=== PATIENT | female | born 1960 | race Caucasian/White ===

== ENCOUNTER 2016-06-05 17:27 | Emergency (ER) | payer OTHER ==
[~2016-06-05] VITALS: Ht 154.9 cm; Wt 90.9 kg
[~2016-06-05 17:27] MED LIST: B-12500 MCG PO; CALCIUM600 MG PO; CELEXA 20MG20 MG/TAB PO; COLACE 100100 MG/CAP PO; LEVOXYL0.125 MG PO; MULTI VITAMINS1 TAB PO; TOPROL XL 50MG50 MG PO
[2016-06-05 17:31] VITALS: TEMP 98.4
[2016-06-05 19:24] VITALS: BP 155/86; PULSE 86
== END 2016-06-05 19:26 | disposition home or self-care (01) ==
LOC: COL.ER 17:27
DX: R13.10 Dysphagia, unspecified (principal); R49.0 Dysphonia; Z98.1 Arthrodesis status; I10 Essential (primary) hypertension
CPT/HCPCS: J2060; Q9967

== ENCOUNTER 2016-10-17 07:19 | Day surgery (SDC) | payer OTHER ==
[~2016-10-17] VITALS: Ht 154.9 cm; Wt 103.1 kg
[2016-10-17] MEDS ORDERED: ROXICODONE 55 MG/TAB PO (08:11)
[2016-10-17] MEDS ORDERED: PAMELOR 25MG25 MG PO (08:12)
[2016-10-17] MEDS ORDERED: CYMBALTA 60MG60 MG PO (08:12)
[2016-10-17] MEDS ORDERED: ZANAFLEX 4MG TAB4 MG PO (08:13)
[2016-10-17 08:17] VITALS: BP 178/91; PULSE 85; TEMP 98.1
[2016-10-17 09:33] VITALS: BP 148/68; PULSE 81
[2016-10-17 09:48] VITALS: BP 148/65; PULSE 92
[2016-10-17 10:03] VITALS: BP 142/52; PULSE 89
== END 2016-10-17 10:15 | disposition home or self-care (01) ==
LOC: SDCO 07:19
DX: J38.01 Paralysis of vocal cords and larynx, unilateral (principal); J37.0 Chronic laryngitis; I34.1 Nonrheumatic mitral (valve) prolapse; I10 Essential (primary) hypertension; K21.9 Gastro-esophageal reflux disease without esophagitis; E03.9 Hypothyroidism, unspecified; F32.9 Major depressive disorder, single episode, unspecified; F41.9 Anxiety disorder, unspecified; G47.33 Obstructive sleep apnea (adult) (pediatric); M19.90 Unspecified osteoarthritis, unspecified site; Z96.652 Presence of left artificial knee joint; Z90.49 Acquired absence of other specified parts of digestive tract; Z85.828 Personal history of other malignant neoplasm of skin; Z80.9 Family history of malignant neoplasm, unspecified
CPT/HCPCS: J2704; J7120

== ENCOUNTER 2017-02-20 13:11 | Outpatient (RCR) | payer OTHER ==
[~2017-02-20 13:11] MED LIST changes: +CYMBALTA 60MG60 MG PO; +PAMELOR 25MG25 MG PO; +ROXICODONE 55 MG/TAB PO; +ZANAFLEX 4MG TAB4 MG PO
== END 2017-05-21 | disposition home or self-care (01) ==
LOC: WSPT → WSOT 13:15 → WSPT 13:15
DX: M54.2 Cervicalgia (principal); M54.5 Low back pain; Z98.1 Arthrodesis status; Z96.652 Presence of left artificial knee joint

== ENCOUNTER → 2017-04-24 | Outpatient (CLI) | payer OTHER | LOC: COL.RAD 11:38 | DX: M79.604 Pain in right leg (principal) ==

== ENCOUNTER → 2017-06-25 | Outpatient (CLI) | payer OTHER | LOC: SUN.DIA 13:10 | DX: E11.9 Type 2 diabetes mellitus without complications (principal); Z68.41 Body mass index [BMI] 40.0-44.9, adult; Z71.3 Dietary counseling and surveillance | CPT/HCPCS: G0108 ==

== ENCOUNTER → 2017-07-01 | Outpatient (CLI) | payer OTHER | LOC: MHCPAIN 14:08 | DX: G89.29 Other chronic pain (principal); M47.817 Spondylosis without myelopathy or radiculopathy, lumbosacral region; M54.16 Radiculopathy, lumbar region; M53.3 Sacrococcygeal disorders, not elsewhere classified; M96.1 Postlaminectomy syndrome, not elsewhere classified; M48.061 Spinal stenosis, lumbar region without neurogenic claudication | CPT/HCPCS: G0463 ==

== ENCOUNTER → 2017-09-06 | Outpatient (CLI) | payer OTHER | LOC: MHCPAIN 09:15 | DX: G89.29 Other chronic pain (principal); M47.817 Spondylosis without myelopathy or radiculopathy, lumbosacral region; M54.16 Radiculopathy, lumbar region; M53.3 Sacrococcygeal disorders, not elsewhere classified; M96.1 Postlaminectomy syndrome, not elsewhere classified; M48.061 Spinal stenosis, lumbar region without neurogenic claudication | CPT/HCPCS: G0463 ==

== ENCOUNTER → 2017-09-19 | Outpatient (CLI) | payer OTHER | LOC: MHCPAIN 08:34 | DX: M47.27 Other spondylosis with radiculopathy, lumbosacral region (principal) | CPT/HCPCS: J1100; Q9967 ==

== ENCOUNTER → 2017-10-01 | Outpatient (CLI) | payer OTHER | LOC: MHCPAIN 13:55 | DX: G89.29 Other chronic pain (principal); M47.817 Spondylosis without myelopathy or radiculopathy, lumbosacral region; M54.16 Radiculopathy, lumbar region; M53.3 Sacrococcygeal disorders, not elsewhere classified; M96.1 Postlaminectomy syndrome, not elsewhere classified | CPT/HCPCS: G0463 ==

== ENCOUNTER → 2017-12-19 | Outpatient (CLI) | payer OTHER | LOC: MHCPAIN 08:00 | DX: M54.16 Radiculopathy, lumbar region (principal) | CPT/HCPCS: J1100; Q9967 ==

== ENCOUNTER → 2018-01-02 | Outpatient (CLI) | payer OTHER | LOC: COL.RAD 08:26 | DX: K22.8 Other specified diseases of esophagus (principal); R13.10 Dysphagia, unspecified; R10.84 Generalized abdominal pain; Z98.890 Other specified postprocedural states | CPT/HCPCS: Q9967 ==

== ENCOUNTER → 2018-02-04 | Outpatient (CLI) | payer OTHER | LOC: MHCPAIN 11:02 | DX: G89.29 Other chronic pain (principal); M47.817 Spondylosis without myelopathy or radiculopathy, lumbosacral region; M54.16 Radiculopathy, lumbar region; M53.3 Sacrococcygeal disorders, not elsewhere classified; M96.1 Postlaminectomy syndrome, not elsewhere classified | CPT/HCPCS: G0463 ==

== ENCOUNTER → 2018-02-27 | Outpatient (CLI) | payer OTHER | LOC: MC.RAD 01-14 10:00 | DX: Z12.31 Encounter for screening mammogram for malignant neoplasm of breast (principal) ==

== ENCOUNTER → 2018-04-01 | Outpatient (CLI) | payer OTHER | LOC: MHCPAIN 10:14 | DX: G89.29 Other chronic pain (principal); M47.817 Spondylosis without myelopathy or radiculopathy, lumbosacral region; M54.16 Radiculopathy, lumbar region; M53.3 Sacrococcygeal disorders, not elsewhere classified; M96.1 Postlaminectomy syndrome, not elsewhere classified | CPT/HCPCS: G0463 ==

== ENCOUNTER → 2018-04-10 | Outpatient (CLI) | payer OTHER | LOC: MHCPAIN 14:47 | DX: M47.817 Spondylosis without myelopathy or radiculopathy, lumbosacral region (principal); M54.16 Radiculopathy, lumbar region | CPT/HCPCS: J1100; Q9967 ==

== ENCOUNTER → 2018-04-24 | Outpatient (CLI) | payer OTHER | LOC: COL.RAD 10:16 | DX: M51.16 Intervertebral disc disorders with radiculopathy, lumbar region (principal); M96.1 Postlaminectomy syndrome, not elsewhere classified; M48.061 Spinal stenosis, lumbar region without neurogenic claudication; M43.16 Spondylolisthesis, lumbar region; Z98.1 Arthrodesis status | CPT/HCPCS: A9585 ==

== ENCOUNTER → 2018-10-15 | Outpatient (CLI) | payer OTHER | LOC: MHCPAIN | DX: G89.29 Other chronic pain (principal); M47.817 Spondylosis without myelopathy or radiculopathy, lumbosacral region; M54.16 Radiculopathy, lumbar region; M53.3 Sacrococcygeal disorders, not elsewhere classified; M96.1 Postlaminectomy syndrome, not elsewhere classified | CPT/HCPCS: G0463 ==

== ENCOUNTER → 2018-12-29 | Outpatient (CLI) | payer OTHER | LOC: MHCPAIN 09:01 | DX: G89.29 Other chronic pain (principal); M47.817 Spondylosis without myelopathy or radiculopathy, lumbosacral region; M54.16 Radiculopathy, lumbar region; M53.3 Sacrococcygeal disorders, not elsewhere classified | CPT/HCPCS: G0463 ==

== ENCOUNTER → 2019-01-06 | Outpatient (CLI) | payer OTHER | LOC: COL.RAD 08:47 | DX: Z01.812 Encounter for preprocedural laboratory examination (principal); E11.9 Type 2 diabetes mellitus without complications; M47.816 Spondylosis without myelopathy or radiculopathy, lumbar region; M96.1 Postlaminectomy syndrome, not elsewhere classified; Z98.890 Other specified postprocedural states | CPT/HCPCS: A9585 ==

== ENCOUNTER → 2019-01-08 | Outpatient (CLI) | payer OTHER | LOC: MHCPAIN 11:36 | DX: M47.817 Spondylosis without myelopathy or radiculopathy, lumbosacral region (principal); M54.16 Radiculopathy, lumbar region | CPT/HCPCS: J1100; Q9967 ==

== ENCOUNTER 2019-02-15 15:54 | Emergency (ER) | payer OTHER ==
[~2019-02-15] VITALS: Ht 154.9 cm; Wt 95.5 kg
[~2019-02-15 15:54] MED LIST changes: +CALCIUM CARBON650 M2 PO; -CALCIUM600 MG PO
[2019-02-15 15:59] VITALS: BP 141/73; TEMP 97
[2019-02-15] MEDS ORDERED: PAMELOR75 MG PO (16:09)
[2019-02-15] MEDS ORDERED: PERCOCET 325 MG1 TA2 PO (16:10)
[2019-02-15] MEDS ORDERED: GLUCOPHAGE1000 MG PO (16:18)
[2019-02-15] MEDS ORDERED: COZAAR 25MG25 MG/TAB PO (16:19)
[2019-02-15] MEDS ORDERED: LYRICA 25MG CAP25 MG PO (16:19)
[2019-02-15 16:25] VITALS: PULSE 81
== END 2019-02-15 16:25 | disposition home or self-care (01) ==
LOC: COL.ER 15:54
DX: S80.01XA Contusion of right knee, initial encounter (principal); S80.02XA Contusion of left knee, initial encounter; W19.XXXA Unspecified fall, initial encounter

== ENCOUNTER 2020-08-25 09:24 | Inpatient (IN) | payer MEDICARE, OTHER ==
[~2020-08-25] VITALS: Ht 155 cm; Wt 97.9 kg
[~2020-08-25 09:24] MED LIST changes: +COZAAR 25MG25 MG/TAB PO; +GLUCOPHAGE1000 MG PO; +LYRICA 25MG CAP25 MG PO; +PAMELOR75 MG PO; +PERCOCET 325 MG1 TA2 PO
[2020-10-24] VITALS (10 sets, daily range): BP systolic 131–163; BP diastolic 57–83; PULSE 65–85; TEMP 97.2–98.2
[2020-10-24] MEDS ORDERED: COZAAR 50MG50 MG/TAB PO (08:17)
[2020-10-24] MEDS ORDERED: PAMELOR75 MG PO (08:17)
[2020-10-24] MEDS ORDERED: LYRICA 50MG CAP50 MG PO (08:17)
[2020-10-24] MEDS ORDERED: ZANAFLEX CAPSULE4 MG PO (08:18)
[2020-10-24] MEDS ORDERED: SINGULAIR 110 MG/TAB PO (08:18)
[2020-10-24] MEDS ORDERED: GLUCOPHAGE1000 MG PO (08:18)
[2020-10-24] MEDS ORDERED: HCTZ12.5TAB PO (08:18)
[2020-10-24] MEDS ORDERED: SYNTHROID0.125 MG/T PO (08:19)
[2020-10-24] MEDS ORDERED: CELEXA 20MG20 MG/TAB PO (08:20)
[2020-10-24] MEDS ORDERED: ZYRTEC 10MG10 MG PO (08:21)
[2020-10-24] MEDS ORDERED: ATARAX 25MG25 MG/TAB PO (08:22)
[2020-10-24] MEDS ORDERED: ONE-A-DAY ESSE1 EACH PO (08:22)
[2020-10-24] MEDS ORDERED: MELATONIN5 M1 PO (08:22)
[2020-10-24] MEDS ORDERED: BIOTIN5000 MCG PO (08:23)
[2020-10-24] MEDS ORDERED: MASON NATURAL2000 IU PO (08:23)
[2020-10-24] MEDS ORDERED: B COMPLEX & B121 TAB PO (08:23)
[2020-10-24] MEDS ORDERED: FOLIC ACID0.4 MG PO (08:23)
[2020-10-24] MEDS ORDERED: IRON TABLETS325 MG PO (08:24)
[2020-10-24] MEDS ORDERED: VITAMINC1000TA PO (08:24)
--- NOTE | 2020-10-24 19:40 | NUR ---
Patient doing better this evening. Pain was an issue this afternoon. I did call and speak with Hima Mazariegos. Patient was requesting a morphine drip, rating her pain a 10/10. No orders for morphine drip, but we did DC scheduled tyelnol & and start [place] to alternate with Roxicodone. Patient had recived a dose of IV morphine for breakthrough pain as well as ultram. Patient had been quite sleepy and facial expression & movements at the time did not appear to be 10/10 pain. Patient ate about half her dinner without nausea. Right knee occlusive dressing remains CDI. Ice pack intact. Elevated on pillow. Cms intact. Ivf to Lfa with fluids and antiboitc per orders. Scds ble. [place] to LLE. Patient VSS on O2. Patient also has been using CPAP while sleeping. Patient spouse was also at bedside today. Bedside report to Eula NEWMAN
--- NOTE | 2020-10-24 23:43 | NUR ---
Patient assessed around 2099. Alert and oriented x 4, and able to make needs known. Reported level 8 pain, and was given PRN Roxicodone around 2099. Pain was at a 6 around 2334, and given PRN [place]. Peripheral IV to left forearm. Denies SOB and dyspnea. Wears CPAP at night. LS CTA in upper lobes, diminished in lower. Respirations even and unlabored. HRR. Capillary refill less than 3 seconds. Non-tenting skin turgor. BSAx4. Passing gas. Abdomen soft and non-tender. Assisted to bathroom, one assist with walker, and able to urinate, clear yellow urine. Dressing/ALMA to right knee CDI. Patient voices no questions, needs, or concerns at this time. Resting in bed with call light within reach.
[2020-10-25] VITALS (8 sets, daily range): BP systolic 137–180; BP diastolic 52–74; PULSE 80–95; TEMP 98.1–99.5
--- NOTE | 2020-10-25 03:36 | NUR ---
Patient given PRN Roxicodone for pain as requested.
--- NOTE | 2020-10-25 06:15 | NUR ---
Patient given PRN [place] for pain around 0510. Voices no further questions, needs, or concerns at this time. Resting in bed with call light within reach.
[2020-10-25 06:40] LABS: HEMOGLOBIN 11.4 g/dl (12.5-16.0)
[2020-10-25 06:45] LABS: HEMATOCRIT 34.9 % (37.0-47.0)
--- NOTE | 2020-10-25 09:40 | NUR ---
PT UP TO RECLINER WITH THERAPY. CONTINUES RATING PAIN 8/10 AFTER PAIN MEDICATIONS GIVEN. PT HAVING NORMAL UNLABORED CONVERSATIONS WITH THERAPY AND NURSING. AMBULATED TO FLOOR AND BACK TO ROOM.
--- NOTE | 2020-10-25 10:41 | NUR ---
First visit from the lamp shades supervisor. No needs right now.
--- NOTE | 2020-10-25 22:36 | NUR ---
Patient assessed around 2019. Alert and oriented x 4, and able to make needs known. Reported level 7 pain to right knee, and given PRN Roxicodone as requested for pain. Peripheral INT to left forearm. Denies having SOB and dyspnea. LS CTA. Respirations even and unlabored. HRR. Capillary refill less than 3 seconds. Non-tenting skin turgor. BSAx4. Abdomen soft and non-tender. Edema to right leg. Ice on. Aquacell to right knee CDI. Patient voices no questions, needs, or concerns at this time. Ambulates with walker and one assist. Resting in bed with call light within reach.
--- NOTE | 2020-10-26 03:50 | NUR ---
Patient complaining of pain to right knee. Given PRN [place] as requested for pain.
[2020-10-26 04:39] VITALS: BP 175/62; PULSE 87; TEMP 99
--- NOTE | 2020-10-26 05:40 | NUR ---
Patient received PRN pain medication as requested during the night. Stated that her pain is well controlled during the night and has been able to get some rest. Voices no questions, needs, or concerns at this time. Resting in bed with call light within reach.
[2020-10-26 07:53] VITALS: BP 138/63; PULSE 99; TEMP 98.2
--- NOTE | 2020-10-26 08:27 | NUR ---
(late entry 10/25) Engineering Instructor met with the patient to complete intake. The patient lives in [place] with her . The patient has a CPAP and is independent. The patient receives [facility] from the [place]. The patient's PCP is Dr. Mendoza and patient receives medications from [facility]. The patient does not have advanced directives and was not interested in DPOA-HC form at this time. The patient plans to return home with her with OP PT at [facility]. *Discharge disposition: Home with spouse and OP PT*
[2020-10-26 11:13] VITALS: BP 153/73; PULSE 109; TEMP 98.4
--- NOTE | 2020-10-26 12:31 | NUR ---
Pt sitting up in the chair eating lunch. Having some pain complaints, oral pain medication given. No other needs verbalized, will continue to monitor
[2020-10-26 12:36] LABS: MUCOUS Present /lpf; PH 6 (5-8); SQUAMOUS EPITHELIAL 0-2 /hpf; URINE APPEARANCE Clear; URINE BACTERIA Rare /hpf; URINE BILIRUBIN Negative (NEGATIVE); URINE BLOOD Negative (NEGATIVE); URINE COLOR Yellow; URINE GLUCOSE Negative (NEGATIVE); URINE KETONE 1+ (NEGATIVE); URINE LEUKOCYTE ESTERASE Negative (NEGATIVE); URINE NITRATE Negative (NEGATIVE); URINE PROTEIN(semi-quant) Negative (NEGATIVE); URINE RBC 0-2 /hpf; URINE UROBILINOGEN Negative (NEGATIVE)
[2020-10-26 12:50] LABS: COLLECTION METHOD CLEAN CATCH
--- NOTE | 2020-10-26 14:40 | NUR ---
Pt doing well, hoping to go home. Called PA and notified of patient request. Awaiting orders at this time
[2020-10-26 16:00] VITALS: BP 146/56; PULSE 97; TEMP 98.3
[2020-10-26] MEDS ORDERED: XARELTO10 MG PO (16:04)
[2020-10-26] MEDS ORDERED: NORCO 325 MG-7.1 TAB PO (16:05)
[2020-10-26] MEDS ORDERED: ROXICODONE 55 MG/TAB PO (16:06)
[2020-10-26] MEDS ORDERED: SENOKOT S 50 MG1 TAB PO (16:06)
--- NOTE | 2020-10-26 16:40 | NUR ---
Reviewed discharge instructions with patient to include follow up appointments and prescriptions. INT removed from left wrist. left briefly, informed her to notify nursing when he returns so that we can take her out. Pain medication given for transfer.
--- NOTE | 2020-10-26 17:10 | NUR ---
Pt escorted out at this time
== END 2020-10-26 17:19 | disposition home or self-care (01) | DRG 470 ==
LOC: SURG 10-24 07:30 → INPTSU 10-24 07:46 → SURG 10-24 10:20
PROVIDERS: ADMIT Orthopaedic Surgery
PROC: 0SRC069 Replacement of Right Knee Joint with Oxidized Zirconium on Polyethylene Synthetic Substitute, Cemented, Open Approach (ICD-10-PCS; principal; 2020-10-24 10:20)
DX: M17.11 Unilateral primary osteoarthritis, right knee (principal); E66.01 Morbid (severe) obesity due to excess calories; Z68.37 Body mass index [BMI] 37.0-37.9, adult
CPT/HCPCS: A9284; C1713; C1776; J0690; J2250; J2270; J2405; J2704; J3010; J7030

== ENCOUNTER 2021-05-03 14:45 | Emergency (ER) | payer MEDICARE, OTHER ==
[~2021-05-03] VITALS: Ht 152.4 cm; Wt 89.5 kg
[~2021-05-03 14:45] MED LIST changes: +ATARAX 25MG25 MG/TAB PO; +B COMPLEX & B121 TAB PO; +BIOTIN5000 MCG PO; +COZAAR 50MG50 MG/TAB PO; +FOLIC ACID0.4 MG PO; +HCTZ12.5TAB PO; +IRON TABLETS325 MG PO; +LYRICA 50MG CAP50 MG PO; +MASON NATURAL2000 IU PO; +MELATONIN5 M1 PO; +NORCO 325 MG-7.1 TAB PO; +ONE-A-DAY ESSE1 EACH PO; +SENOKOT S 50 MG1 TAB PO; +SINGULAIR 110 MG/TAB PO; +SYNTHROID0.125 MG/T PO; +VITAMINC1000TA PO; +XARELTO10 MG PO; +ZANAFLEX CAPSULE4 MG PO; +ZYRTEC 10MG10 MG PO
[2021-05-03 15:41] LABS: BASO % 0.4 % (0.0-2.0); EOS # 0.4 K/mm3 (0.0-0.7); EOS % 3.6 % (0.0-4.0); GRAN # 5.6 K/mm3 (1.4-6.5); GRAN % 56.6 % (42.2-75.2); HEMATOCRIT 37.3 % (37.0-47.0); HEMOGLOBIN 12.3 g/dl (12.5-16.0); LYMPH % 30.4 % (20.0-51.0); MEAN CELL VOLUME 83 fl (80.0-100.0); MEAN CORPUSCULAR HEMOGLOBIN 28 pg (27-31); MEAN CORPUSCULAR HGB CONC 33 g/dl (33.0-37.0); MEAN PLATELET VOLUME 11.9 fl (7.4-10.4); MONO # 0.9 K/mm3 (0.1-0.6); MONO % 8.7 % (1.7-9.3); PLATELET COUNT 279 K/mm3 (130-400); RED BLOOD COUNT 4.48 M/mm3 (4.10-5.30); REDCELL DISTRIBUTION WIDTH-CV 14.5 % (11.5-14.5)
[2021-05-03 16:15] LABS: ALANINE AMINOTRANSFERASE 18 U/L (0-55); ALBUMIN 4.1 gm/dL (3.4-4.8); ALKALINE PHOSPHATASE 67 U/L (40-150); ANION GAP 15 mmol/L (7-16); AST,SGOT 19 U/L (5-34); BILIRUBIN,TOTAL 0.3 mg/dL (0.2-1.2); BLOOD UREA NITROGEN 12 mg/dL (10-20); CALCIUM 9.6 mg/dL (8.4-10.2); CARBON DIOXIDE 24 mmol/L (23-31); CHLORIDE 102 mmol/L (98-107); CREATININE, serum 0.73 mg/dL (0.57-1.11); GLUCOSE 83 mg/dL (70-99); POTASSIUM 4.1 mmol/L (3.5-4.5); SODIUM 141 mmol/L (136-145); TOTAL PROTEIN 7.3 gm/dL (6.2-8.1)
[2021-05-03 16:22] LABS: TROPONIN-I < 0.010 ng/mL (0.00-0.033)
[2021-05-03 18:20] VITALS: BP 139/89; PULSE 81; TEMP 98.2
== END 2021-05-03 18:20 | disposition home or self-care (01) ==
LOC: COL.ER 14:45
PROVIDERS: Student in an Organized Health Care Education/Training Program
DX: R07.89 Other chest pain (principal); I10 Essential (primary) hypertension; E78.00 Pure hypercholesterolemia, unspecified; Z79.899 Other long term (current) drug therapy

== ENCOUNTER 2021-11-08 15:45 | Outpatient (RCR) | payer MEDICARE, OTHER | END 2021-11-09 | disposition home or self-care (01) | LOC: WSPT | DX: M54.2 Cervicalgia (principal); M25.511 Pain in right shoulder; M25.512 Pain in left shoulder; G89.29 Other chronic pain ==

== ENCOUNTER → 2021-11-27 | Outpatient (CLI) | payer MEDICARE, OTHER | LOC: COL.RAD 08:15 | DX: G51.8 Other disorders of facial nerve (principal) ==

== ENCOUNTER → 2022-03-12 | Outpatient (RCR) | payer MEDICARE, OTHER | END | disposition home or self-care (01) | LOC: WSPT | DX: M25.511 Pain in right shoulder (principal) ==

== ENCOUNTER 2022-10-25 12:08 | Emergency (ER) | payer MEDICARE, OTHER ==
[~2022-10-25] VITALS: Ht 152.4 cm; Wt 89.5 kg
[2022-10-25 14:16] VITALS: BP 145/52; PULSE 70; TEMP 98.7
== END 2022-10-25 14:16 | disposition home or self-care (01) ==
LOC: COL.ER 12:08
DX: K56.41 Fecal impaction (principal); Z90.49 Acquired absence of other specified parts of digestive tract

== ENCOUNTER 2023-05-07 11:29 | Emergency (ER) | payer MEDICARE, OTHER ==
[~2023-05-07] VITALS: Ht 147.3 cm; Wt 85.0 kg
[2023-05-07 11:39] VITALS: TEMP 97.3
[2023-05-07 12:17] LABS: BASO % 0.5 % (0.0-2.0); EOS # 0.2 K/mm3 (0.0-0.7); EOS % 1.7 % (0.0-4.0); GRAN # 5.3 K/mm3 (1.4-6.5); GRAN % 59.9 % (42.2-75.2); HEMATOCRIT 38.6 % (37.0-47.0); HEMOGLOBIN 12.5 g/dl (12.5-16.0); LYMPH # 2.5 K/mm3 (1.2-3.4); LYMPH % 27.7 % (20.0-51.0); MEAN CELL VOLUME 83 fl (80.0-100.0); MEAN CORPUSCULAR HEMOGLOBIN 27 pg (27-31); MEAN CORPUSCULAR HGB CONC 32 g/dl (33.0-37.0); MEAN PLATELET VOLUME 11.2 fl (7.4-10.4); MONO # 0.9 K/mm3 (0.1-0.6); MONO % 9.9 % (1.7-9.3); PLATELET COUNT 370 K/mm3 (130-400); RED BLOOD COUNT 4.67 M/mm3 (4.10-5.30); REDCELL DISTRIBUTION WIDTH-CV 18.9 % (11.5-14.5)
[2023-05-07 12:30] LABS: ALANINE AMINOTRANSFERASE 27 U/L (0-55); ALBUMIN 4.1 gm/dL (3.4-4.8); ALKALINE PHOSPHATASE 79 U/L (40-150); ANION GAP 15 mmol/L (7-16); AST,SGOT 27 U/L (5-34); BILIRUBIN,TOTAL 0.5 mg/dL (0.2-1.2); BLOOD UREA NITROGEN 17 mg/dL (10-20); CALCIUM 10.4 mg/dL (8.4-10.2); CARBON DIOXIDE 22 mmol/L (23-31); CHLORIDE 105 mmol/L (98-107); CREATININE, serum 0.66 mg/dL (0.57-1.11); GLUCOSE 88 mg/dL (70-99); SODIUM 142 mmol/L (136-145); TOTAL PROTEIN 7.3 gm/dL (6.2-8.1)
[2023-05-07 12:48] LABS: TROPONIN-I < 0.010 ng/mL (0.00-0.033)
[2023-05-07 13:08] VITALS: BP 124/61; PULSE 73
== END 2023-05-07 13:08 | disposition home or self-care (01) ==
LOC: COL.ER 11:29
PROVIDERS: Family Medicine
DX: R07.89 Other chest pain (principal); R51.9 Headache, unspecified

== ENCOUNTER → 2024-02-27 | Outpatient (CLI) | payer MEDICARE, OTHER | LOC: MC.RAD 09:54 | DX: N63.11 Unspecified lump in the right breast, upper outer quadrant (principal); N63.25 Unspecified lump in the left breast, overlapping quadrants ==